=== PATIENT | male | born 1965 | race Caucasian/White ===

== ENCOUNTER 2017-09-13 16:39 | Emergency (ER) | payer OTHER ==
[~2017-09-13] VITALS: Ht 170.2 cm; Wt 75.0 kg
[2017-09-13 17:12] VITALS: BP 155/87
== END 2017-09-13 17:14 | disposition home or self-care (01) ==
LOC: EMS 16:41
DX: S01.412A Laceration without foreign body of left cheek and temporomandibular area, initial encounter (principal); S50.312A Abrasion of left elbow, initial encounter; L55.0 Sunburn of first degree; F10.129 Alcohol abuse with intoxication, unspecified; Z59.0 Homelessness; Z02.89 Encounter for other administrative examinations; Y04.2XXA Assault by strike against or bumped into by another person, initial encounter; Y93.89 Activity, other specified; Y92.89 Other specified places as the place of occurrence of the external cause; Y99.8 Other external cause status
CPT/HCPCS: 99283